=== PATIENT | male | born 1955 | race Caucasian/White ===

== ENCOUNTER 2016-04-23 09:57 | Outpatient (CLI) | payer MEDICARE, OTHER ==
[2015-10-14 17:18] VITALS: BP 135/84
[2016-04-23 10:15] LABS: BASOPHILS % 0.3 (0.0-1.5); EOSINOPHILS % 4.7 % (0.0-6.8); LYMPHOCYTES # 0.5 # k/uL (0.6-4.0); MEAN CORPUSCULAR HEMOGLOBIN 28.8 pg (28.0-34.0); MONOCYTES # 0.2 # k/uL (0.0-0.9); MONOCYTES % 6.9 % (0.0-11.0); NEUTROPHILS # 2.2 # k/uL (1.4-7.7)
[2016-04-23 10:37] LABS: eGFR (African) > 60; eGFR (Non-African) > 60
== END 2016-04-23 10:00 ==
LOC: LAB 09:57
PROVIDERS: ATTEND Internal Medicine Gastroenterology
DX: Z51.81 Encounter for therapeutic drug level monitoring (principal); Z79.899 Other long term (current) drug therapy; Z94.4 Liver transplant status
CPT/HCPCS: 36415; 80053; 80197; 80299; 85025

== ENCOUNTER 2016-05-09 08:09 | Outpatient (CLI) | payer MEDICARE, OTHER ==
[2015-10-14 17:18] VITALS: BP 135/84
[2016-05-09 08:37] LABS: BASOPHILS % 0.4 (0.0-1.5); EOSINOPHILS % 3.7 % (0.0-6.8); LYMPHOCYTES # 0.5 # k/uL (0.6-4.0); MEAN CORPUSCULAR HEMOGLOBIN 29.1 pg (28.0-34.0); MONOCYTES # 0.3 # k/uL (0.0-0.9); MONOCYTES % 7.6 % (0.0-11.0); NEUTROPHILS # 2.5 # k/uL (1.4-7.7)
[2016-05-09 09:15] LABS: eGFR (African) > 60; eGFR (Non-African) 60
== END 2016-05-09 08:10 ==
LOC: LAB 08:09
PROVIDERS: ATTEND Internal Medicine Gastroenterology
DX: Z51.81 Encounter for therapeutic drug level monitoring (principal); Z79.899 Other long term (current) drug therapy; Z94.4 Liver transplant status
CPT/HCPCS: 36415; 80053; 80197; 80299; 85025

== ENCOUNTER 2016-05-30 11:40 | Outpatient (CLI) | payer MEDICARE, OTHER ==
[2015-10-14 17:18] VITALS: BP 135/84
[2016-05-30 12:03] LABS: BASOPHILS % 0.2 (0.0-1.5); EOSINOPHILS % 2.8 % (0.0-6.8); LYMPHOCYTES # 0.6 # k/uL (0.6-4.0); MEAN CORPUSCULAR HEMOGLOBIN 29.3 pg (28.0-34.0); MONOCYTES # 0.3 # k/uL (0.0-0.9); MONOCYTES % 6.8 % (0.0-11.0); NEUTROPHILS # 3.1 # k/uL (1.4-7.7)
[2016-05-30 12:29] LABS: eGFR (African) > 60; eGFR (Non-African) > 60
== END 2016-05-30 11:42 ==
LOC: LAB 11:40
PROVIDERS: ATTEND Internal Medicine Gastroenterology
DX: Z79.899 Other long term (current) drug therapy (principal); Z94.4 Liver transplant status
CPT/HCPCS: 36415; 80053; 80197; 80299; 85025

== ENCOUNTER 2016-06-18 11:19 | Outpatient (CLI) | payer MEDICARE, OTHER ==
[2015-10-14 17:18] VITALS: BP 135/84
[2016-06-18 11:38] LABS: BASOPHILS % 0.4 (0.0-1.5); EOSINOPHILS % 2.2 % (0.0-6.8); LYMPHOCYTES # 0.6 # k/uL (0.6-4.0); MEAN CORPUSCULAR HEMOGLOBIN 28.8 pg (28.0-34.0); MONOCYTES # 0.2 # k/uL (0.0-0.9); MONOCYTES % 5.4 % (0.0-11.0); NEUTROPHILS # 2.4 # k/uL (1.4-7.7)
[2016-06-18 12:10] LABS: eGFR (African) > 60; eGFR (Non-African) > 60
== END 2016-06-18 11:20 ==
LOC: LAB 11:19
PROVIDERS: ATTEND Internal Medicine Gastroenterology
DX: Z79.899 Other long term (current) drug therapy (principal); Z94.4 Liver transplant status
CPT/HCPCS: 36415; 80053; 80197; 80299; 85025; 87522

== ENCOUNTER 2016-08-21 08:22 | Outpatient (CLI) | payer MEDICARE, OTHER ==
[2015-10-14 17:18] VITALS: BP 135/84
[2016-08-21 08:56] LABS: BASOPHILS % 0.6 (0.0-1.5); EOSINOPHILS % 3.9 % (0.0-6.8); MEAN CORPUSCULAR HEMOGLOBIN 28.5 pg (28.0-34.0); MEAN CORPUSCULAR VOLUME 88.3 fl (80.0-100.0); MONOCYTES % 6.4 % (0.0-11.0); NEUTROPHILS # 2.4 # k/uL (1.4-7.7)
[2016-08-21 09:13] LABS: eGFR (African) > 60; eGFR (Non-African) > 60
== END 2016-08-21 08:23 ==
LOC: LAB 08:22
PROVIDERS: ATTEND Internal Medicine Gastroenterology
DX: Z51.81 Encounter for therapeutic drug level monitoring (principal); Z79.899 Other long term (current) drug therapy; Z94.4 Liver transplant status
CPT/HCPCS: 36415; 80053; 80197; 80299; 85025

== ENCOUNTER 2016-10-16 08:39 | Outpatient (CLI) | payer MEDICARE, OTHER ==
[2015-10-14 17:18] VITALS: BP 135/84
[2016-10-16 09:18] LABS: BASOPHILS % 0.5 (0.0-1.5); EOSINOPHILS % 3.4 % (0.0-6.8); MEAN CORPUSCULAR HEMOGLOBIN 29.1 pg (28.0-34.0); MEAN CORPUSCULAR VOLUME 86.8 fl (80.0-100.0); MONOCYTES % 7.9 % (0.0-11.0); NEUTROPHILS # 2.4 # k/uL (1.4-7.7)
[2016-10-16 09:28] LABS: eGFR (African) > 60; eGFR (Non-African) > 60
[2016-10-16 23:01] LABS: PROTEIN mg/dL 57 mg/dL
== END 2016-10-16 08:40 ==
LOC: LAB 08:39
PROVIDERS: ATTEND Internal Medicine Gastroenterology
DX: I11.9 Hypertensive heart disease without heart failure (principal)
CPT/HCPCS: 36415; 80053; 80061; 80197; 80299; 82570; 84156; 85025; 87522

== ENCOUNTER → 2016-10-24 | Outpatient (CLI) | payer MEDICARE, OTHER ==
[2015-10-14 17:18] VITALS: BP 135/84
[2016-10-24 11:24] LABS: BASOPHILS % 0.5 (0.0-1.5); EOSINOPHILS % 1.4 % (0.0-6.8); MEAN CORPUSCULAR HEMOGLOBIN 29.6 pg (28.0-34.0); MEAN CORPUSCULAR VOLUME 85.8 fl (80.0-100.0); MONOCYTES % 5.6 % (0.0-11.0); NEUTROPHILS # 3.6 # k/uL (1.4-7.7)
[2016-10-25 00:41] LABS: TOTAL PROTEIN 6.7 g/dL (6.0-8.5)
== END ==
LOC: LAB 10:56
PROVIDERS: ATTEND Internal Medicine Gastroenterology
DX: Z79.4 Long term (current) use of insulin (principal); Z79.899 Other long term (current) drug therapy
CPT/HCPCS: 36415; 80053; 85025; 87497

== ENCOUNTER 2017-01-06 10:29 | Outpatient (CLI) | payer MEDICARE, OTHER ==
[2015-10-14 17:18] VITALS: BP 135/84
[2017-01-06 11:02] LABS: BASOPHILS % 0.7 (0.0-1.5); EOSINOPHILS % 4.6 % (0.0-6.8); MEAN CORPUSCULAR HEMOGLOBIN 29.1 pg (28.0-34.0); MEAN CORPUSCULAR VOLUME 84.9 fl (80.0-100.0); MONOCYTES % 5.8 % (0.0-11.0); NEUTROPHILS # 3.1 # k/uL (1.4-7.7)
[2017-01-06 11:24] LABS: eGFR (African) > 60; eGFR (Non-African) > 60
== END 2017-01-06 10:30 ==
LOC: LAB 10:29
PROVIDERS: ATTEND Internal Medicine Gastroenterology
DX: Z94.4 Liver transplant status (principal); Z79.899 Other long term (current) drug therapy
CPT/HCPCS: 36415; 80053; 80197; 80299; 82977; 85025

== ENCOUNTER 2017-03-17 07:49 | Outpatient (CLI) | payer MEDICARE, OTHER ==
[2015-10-14 17:18] VITALS: BP 135/84
[2017-03-17 08:28] LABS: MEAN CORPUSCULAR HEMOGLOBIN 29.2 pg (28.0-34.0); MEAN CORPUSCULAR VOLUME 88.5 fl (80.0-100.0)
[2017-03-17 08:37] LABS: eGFR (African) > 60; eGFR (Non-African) > 60
[2017-03-17 09:00] LABS: SEGMENTED NEUTROPHILS % 68 % (39-79)
[2017-03-17 09:01] LABS: BASOPHILS % 2 % (0-2); EOSINOPHILS % 3 % (0-7); MONOCYTES % 10 % (0-11)
== END 2017-03-17 07:50 ==
LOC: LAB 07:49
PROVIDERS: ATTEND Internal Medicine Gastroenterology
DX: Z94.4 Liver transplant status (principal); Z79.899 Other long term (current) drug therapy
CPT/HCPCS: 36415; 80053; 80197; 80299; 82977; 85025

== ENCOUNTER 2017-06-12 09:37 | Outpatient (CLI) | payer MEDICARE, OTHER ==
[2015-10-14 17:18] VITALS: BP 135/84
[2017-06-12 10:15] LABS: BASOPHILS % 0.7 (0.0-1.5); EOSINOPHILS % 2.9 % (0.0-6.8); MEAN CORPUSCULAR HEMOGLOBIN 29.1 pg (28.0-34.0); MEAN CORPUSCULAR VOLUME 88.3 fl (80.0-100.0); MONOCYTES % 6.5 % (0.0-11.0); NEUTROPHILS # 2.1 # k/uL (1.4-7.7)
[2017-06-12 10:53] LABS: eGFR (African) > 60; eGFR (Non-African) > 60
== END 2017-06-12 09:40 ==
LOC: LAB 09:37
PROVIDERS: ATTEND Internal Medicine Gastroenterology
DX: Z94.4 Liver transplant status (principal); Z79.899 Other long term (current) drug therapy
CPT/HCPCS: 36415; 80053; 80197; 80299; 82977; 85025

== ENCOUNTER 2017-08-17 10:18 | Outpatient (CLI) | payer MEDICARE, OTHER ==
[2015-10-14 17:18] VITALS: BP 135/84
[2017-08-17 10:31] LABS: BASOPHILS % 0.3 (0.0-1.5); EOSINOPHILS % 2.6 % (0.0-6.8); MEAN CORPUSCULAR HEMOGLOBIN 29.8 pg (28.0-34.0); MEAN CORPUSCULAR VOLUME 90.1 fl (80.0-100.0); MONOCYTES % 7.1 % (0.0-11.0); NEUTROPHILS # 2.6 # k/uL (1.4-7.7)
[2017-08-17 11:01] LABS: eGFR (African) > 60; eGFR (Non-African) > 60
== END 2017-08-17 10:22 ==
LOC: LAB 10:18
PROVIDERS: ATTEND Internal Medicine Gastroenterology
DX: Z94.4 Liver transplant status (principal); Z79.899 Other long term (current) drug therapy
CPT/HCPCS: 36415; 80053; 80197; 80299; 82977; 85025

== ENCOUNTER 2017-10-28 09:45 | Outpatient (CLI) | payer MEDICARE, OTHER ==
[2015-10-14 17:18] VITALS: BP 135/84
[2017-10-28 10:14] LABS: BASOPHILS % 0.6 (0.0-1.5); EOSINOPHILS % 3.4 % (0.0-6.8); MEAN CORPUSCULAR VOLUME 90.2 fl (80.0-100.0); MONOCYTES % 6.2 % (0.0-11.0); NEUTROPHILS # 2.5 # k/uL (1.4-7.7)
[2017-10-28 10:35] LABS: eGFR (African) > 60; eGFR (Non-African) > 60
== END 2017-10-28 09:46 ==
LOC: LAB 09:45
PROVIDERS: ATTEND Internal Medicine Gastroenterology
DX: Z94.4 Liver transplant status (principal); Z79.899 Other long term (current) drug therapy
CPT/HCPCS: 36415; 80053; 80197; 80299; 82977; 85025

== ENCOUNTER 2017-12-25 12:16 | Outpatient (CLI) | payer MEDICARE, OTHER ==
[2015-10-14 17:18] VITALS: BP 135/84
[2017-12-25 12:37] LABS: BASOPHILS % 0.9 (0.0-1.5); EOSINOPHILS % 2.9 % (0.0-6.8); MEAN CORPUSCULAR VOLUME 87.1 fl (80.0-100.0); MONOCYTES % 5.2 % (0.0-11.0); NEUTROPHILS # 3.1 # k/uL (1.4-7.7)
[2017-12-25 12:53] LABS: eGFR (Non-African) > 60
== END 2017-12-25 12:19 ==
LOC: LAB 12:16
PROVIDERS: ATTEND Internal Medicine Gastroenterology
DX: Z94.4 Liver transplant status (principal); Z79.899 Other long term (current) drug therapy
CPT/HCPCS: 36415; 80053; 80197; 80299; 82977; 85025

== ENCOUNTER 2018-05-17 13:44 | Outpatient (CLI) | payer MEDICARE, OTHER ==
[2015-10-14 17:18] VITALS: BP 135/84
[2018-05-17 14:03] LABS: BASOPHILS % 0.3 (0.0-1.5); EOSINOPHILS % 2.6 % (0.0-6.8); MEAN CORPUSCULAR HEMOGLOBIN 29.7 pg (28.0-34.0); MONOCYTES % 6.9 % (0.0-11.0); NEUTROPHILS # 3.5 # k/uL (1.4-7.7)
[2018-05-17 14:23] LABS: eGFR (Non-African) > 60
== END 2018-05-17 13:45 ==
LOC: LAB 13:44
PROVIDERS: ATTEND Internal Medicine Gastroenterology
DX: Z79.899 Other long term (current) drug therapy (principal)
CPT/HCPCS: 36415; 80053; 80197; 80299; 82977; 85025

== ENCOUNTER 2018-07-14 06:52 | Inpatient (IN) | payer MEDICARE, OTHER ==
--- NOTE | 2018-07-14 07:12 | ED Physician Documentation ---
Dyspnea - HISTORIAN Historian: patient - HPI Stated Complaint: shortness of breath Chief Complaint: Dyspnea Additional Information: Patient presents to ED with a 12 hour history of shortness of breath, chills, rigors and productive cough. Patient states his symptoms started last night and progressed throughout the evening. He is immunocompromised secondary to liver transplant, currently on Prograft and Cell Cept. Patient reports a history of hepatitis C, alcoholic liver cirrhosis (s/p transplant), heptocellular carcinoma and hypertension. Onset: hours (12) Duration: continues in ED Severity: mild Exacerbated By: coughing Associated Symptoms: chills, fever, productive cough. denies: chest pain Further Comments: no - ROS CONST: weakness EYES/ENT: denies: problems with vision, nasal drainage GI/: denies: vomiting, nausea NEURO/PSYCH: headache MS/SKIN/LYMPH: muscle aches - PAST HX Lung Disease: none PE Risk Factors: hypertension Other History: other (alcoholic liver cirrhosis s/p liver transplant) Allergies/Adverse Reactions: Allergies Allergy/AdvReac Type Severity Reaction Status Date / Time No Known Drug Allergies Allergy Verified 07/14/18 07:17 - SOCIAL HX Smoking History: non-smoker Alcohol Use: occasionally Drug Use: none - FAMILY HX Family History: none - VITAL SIGNS Vital Signs: Vital Signs Temp Pulse Resp BP Pulse Ox 135/84 10/14/15 17:13 - REVIEWED ASSESSMENTS Nursing Assessment Reviewed: Yes Vitals Reviewed: Yes Progress - Results/Orders Results/Orders: Influenza A - Positive UA - negative for infection or blood - Progress Progress: [address] Henriquez, agrees with admission. ED Results Lab/Radiology - Radiology Radiology Impressions: HISTORY: 63-year-old male with fever, chills, cough COMPARISON: None available TECHNIQUE: 2 views of the chest were performed. FINDINGS: There are mild bibasilar infiltrates. No pneumothorax or pulmonary edema. The heart is not enlarged. There is thoracic degenerative disc disease. The humeral heads are high-riding. IMPRESSION: 1. Mild bibasilar infiltrates may be due to any combination of pneumonia, scarring, and/or atelectasis. Old films would be helpful in making this distinction. 2. Thoracic spondylosis. 3. High-riding humeral heads, consistent with significant rotator cuff tendinopathy bilaterally. Electronically signed on Jul 14, 2018 7:54:03 AM CDT by: Alejo Bowers - Orders Orders: ED Orders Category Date Time Status Place IV Lock 1T Care 07/14/18 07:04 Ordered CHEST 2VIEW [RAD] Stat Exams 07/14/18 Ordered BLOOD CULTURE Stat Lab 07/14/18 Ordered CBC/PLATELET/DIFF Routine Lab 07/14/18 Ordered CMP Routine Lab 07/14/18 Ordered INFLUENZA A&B Stat Lab 07/14/18 Uncollected NT-proBNP Stat Lab 07/14/18 Ordered TROPONIN I (cTnI) Stat Lab 07/14/18 Ordered Dyspnea Physical Exam - EXAM General Appearance: no acute distress, alert EENT: [place] Neck: No: lymphadenopathy Respiratory: no resp. distress, other (faint bibasilar crackles) CVS: reg. rate & rhythm, no murmur Abdomen: non-tender, no distention. No: tenderness Skin: color nml, no rash Extremities: non-tender, no edema Neuro/Psych: oriented x3, motor nml, mood/affect nml Discharge Clincal Impression: Influenza A, Immunocompromised patient Pneumonia Qualifiers: Pneumonia type: due to other aerobic Gram-negative bacteria Laterality: bilateral Lung location: lower lobe of lung Qualified Code(s): J15.6 - Pneumonia due to other Gram-negative bacteria Condition: Fair Disposition: ADMITTED INPATIENT Decision to Admit: [id number] Date of Decison to Admit: 07/14/18 Decision Time: 09:00
[2018-07-14 07:25] LABS: BASOPHILS % 0.9 (0.0-1.5); EOSINOPHILS % 1.2 % (0.0-6.8); MEAN CORPUSCULAR HEMOGLOBIN 29.4 pg (28.0-34.0); MONOCYTES % 6.8 % (0.0-11.0); NEUTROPHILS # 14.9 # k/uL (1.4-7.7)
[2018-07-14] MEDS ORDERED: OSELTAMIVIR PHOSPHATE 75 MG CAPSULE PO ONE (07:40)
[2018-07-14 07:55] LABS: eGFR (Non-African) 58
[2018-07-14] MEDS ORDERED: LEVOFLOXACIN IN DEXTROSE 5 % 750 MG/150 ML PIGGYBACK IV ONE (07:59)
[2018-07-14] MEDS ORDERED: 0.9 % SODIUM CHLORIDE 1,000 ML IV ONE (08:00)
[2018-07-14] MEDS ORDERED: AZITHROMYCIN 500 MG in 0.9 % SODIUM CHLORIDE 250 ML IV ONE (08:15)
[2018-07-14] MEDS ORDERED: BISACODYL 5 MG TABLET.DR PO PRN (09:00)
[2018-07-14] MEDS ORDERED: HYDROcodone /APAP 5/325 1 EACH TABLET PO PRN (09:00)
[2018-07-14] MEDS ORDERED: ACETAMINOPHEN 325 MG TABLET PO PRN (09:00)
[2018-07-14] MEDS ORDERED: DOCUSATE SODIUM 100 MG CAPSULE PO PRN (09:00)
[2018-07-14] MEDS ORDERED: ONDANSETRON HCL/PF 4 MG/ 2ML VIAL IVP PRN (09:00)
[2018-07-14] MEDS ORDERED: MAG HYDROX/ALUMINUM HYD/SIMETH 30 ML UDC PO PRN (09:00)
[2018-07-14 09:19] VITALS: BMI 28.1
[2018-07-14] MEDS ORDERED: LEVOFLOXACIN IN DEXTROSE IV ONE (09:36)
[2018-07-14] MEDS: OSELTAMIVIR PHOSPHATE 75 MG CAPSULE PO SCH ×2 (09:50→20:19)
[2018-07-14] MEDS: HEPARIN SODIUM 5000 UNIT/1 ML SQ SCH ×2 (09:54→17:27)
[2018-07-14] MEDS: LEVOFLOXACIN IN DEXTROSE 5 % 750 MG/150 ML PIGGYBACK IV SCH (09:58)
[2018-07-14 10:46] LABS: OCCULT BLOOD,URINE TRACE-INTACT (NEGATIVE); PH URINE 5.5 (5.0 - 8.0); UROBILINOGEN URINE 0.2 Eu (0.2-1.0)
[2018-07-14] MEDS: IPRATROPIUM/ALBUTEROL SULFATE 3 ML AMPUL.NEB NEB SCH ×3 (11:06→20:50)
[2018-07-14] MEDS: AZITHROMYCIN 500 MG in 0.9 % SODIUM CHLORIDE 250 ML IV SCH (11:11)
--- NOTE | 2018-07-14 12:04 | History and Physical Report ---
History of Present Illnes - History of Present Illness Reason for Visit: Shortness of breath History of Present Illness: Patient began feeling bad yesterday with chills and severe rigors with SOB and productive cough. Grandson with Influenza last week and MIL (who lives with them) hospitalized with pneumonia last week. Patient felt worse today so came to the ER. He was found to have Influenza A and bilateral pneumonia with 17,000 WBC and mild CRI. Unfortunately patient is s/p liver transplant on antirejection meds, therefore is immunocompromised. He will be admitted to Acute Care for treatment. - Past Medical History Cardiac: HTN Heme/Onc: Cancer (hepatocellular - S/p liver transplant 12/02) Hepatobiliary: Cirrhosis, Hep A/B/C (Hep B) - Past Surgical History Past Surgical History: Hernia Repair, Other (liver transplant) - Past Family History Father Family History: CAD, (65) Mother Family History: (72) - Past Social History Smoke: 1 pack per day, No Occupation: disabled Alcohol: None Drugs: None Lives: With Family ( has renal cell cancer) - Health Maintenance Health Maintenance: denies: Influenza Vaccine, Pneumococcal Vaccine Influenza Vaccine: No Pneumonia Vaccine: No Resuscitation Status: Resusciation Status Resuscitation Status Full Code Review of Systems - Review of Systems Constitutional: Chills, Weakness. negative: Fever Eyes: negative: pain ENT: negative: Ear Pain Respiratory: Cough, Shortness of Breath, Sputum Cardiovascular: negative: Chest Pain Gastrointestinal: Diarrhea. negative: Nausea, Vomiting, Abdominal Pain Genitourinary: negative: Dysuria Musculoskeletal: negative: Neck Pain Skin: negative: Rash Neurological: Weakness - Medications/Allergies Allergies/Adverse Reactions: Allergies Allergy/AdvReac Type Severity Reaction Status Date / Time No Known Drug Allergies Allergy Verified 07/14/18 07:17 Current Inpatient Medications: Current Inpatient Medications Acetaminophen (Tylenol) 325 mg PO Q4H PRN PRN Reason: Fever >101 Hydrocodone Bitart/Acetaminophen (Maxwell 5/325) 1 each PO Q6H PRN PRN Reason: Severe Pain (Score 8-10) Al Hydrox/Mg Hydrox/Simethicone (Mylanta) 30 ml PO Q6 PRN PRN Reason: Heartburn Albuterol/Ipratropium (Duoneb) 3 ml NEB Q8 ADRIANNE Last Admin: 07/14/18 11:06 Dose: 3 ml Bisacodyl (Dulcolax) 10 mg PO DAILY PRN PRN Reason: Constipation Citalopram Hydrobromide (Celexa) 40 mg PO DAILY [facility] Docusate Sodium (Colace) 100 mg PO DAILY PRN PRN Reason: Constipation Heparin Sodium (Porcine) (Heparin) 5,000 unit SQ Q8 [facility] Last Admin: 07/14/18 09:54 Dose: 5,000 unit Sodium Chloride (Normal Saline) 1,000 mls @ 125 mls/hr IV Q8H [facility] Azithromycin 500 mg/ Sodium (Chloride) 250 mls @ 125 mls/hr IV Q24H [facility] Stop: 07/24/18 08:59 Last Admin: 07/14/18 11:11 Dose: 125 mls/hr Levofloxacin/Dextrose (Levaquin) 750 mg IV DAILY [facility] Last Admin: 07/14/18 09:58 Dose: Not Given Miscellaneous (Everolimus [Zortress]) 4 mg PO q12 hr [facility] Miscellaneous (Mycophenolate Sodium [Mycophenolic Acid]) 360 mg PO q12 hrs [facility] Miscellaneous (Tacrolimus [Tacrolimus]) 5 mg PO q12hr [facility] Miscellaneous (Valganciclovir Hcl [Valganciclovir Hcl]) 450 mg PO DAILY [facility] Ondansetron HCl (Zofran) 4 mg IVP Q6H PRN PRN Reason: nausea/vomiting Oseltamivir Phosphate (Tamiflu) 75 mg PO BID [facility] Last Admin: 07/14/18 09:50 Dose: Not Given Exam - Exam Vital Signs: Vital Signs (72 hours) 07/14/18 07/14/18 07/14/18 06:52 08:40 09:00 Temperature 99.3 F 100.3 F H 100.2 F H Pulse Rate [ 103 H 88 86 Left Pulse ox] Respiratory 17 20 20 Rate Blood Pressure 120/60 [Left Arm] Blood Pressure 102/70 105/64 105/64 [Right Arm] O2 Sat by Pulse 94 94 94 Oximetry 07/14/18 07/14/18 09:17 09:19 Temperature 100.2 F H 100.2 F H Pulse Rate [ 86 86 Left Pulse ox] Respiratory 20 20 Rate Blood Pressure 120/60 120/60 [Left Arm] Blood Pressure [Right Arm] O2 Sat by Pulse 94 94 Oximetry General: Alert, Oriented to Person, Oriented to Place, Oriented to Time, Cooperative, Mild distress HEENT: Atraumatic, PERRLA, EOMI, Mouth Mucous membr. moist/[place], Nose Mucous membr. moist/[place] Neck: Normal Range of Motion Lungs: Rhonchi Cardiovascular: Regular rate Abdomen: Normal bowel sounds, Soft, No tenderness Integumentary: Normal Extremities: No edema Neurological: Cranial nerves 3-12 NL, Reflexes 2+, Generalized Weakness Psych/Mental Status: Mental status NL, Mood NL, Appropriate Affect, Intact Judgment - Laboratory Results Laboratory Results: Laboratory Results 07/14/18 07/14/18 07/14/18 07:36 Unknown Unknown WBC 17.00 H RBC 4.80 Hgb 14.1 Hct 42.0 MCV 88.0 MCH 29.4 MCHC 33.5 RDW 14.1 Plt Count 152 Neut % (Auto) 87.2 H Lymph % (Auto) 3.9 L [place] % (Auto) 6.8 Eos % (Auto) 1.2 Baso % (Auto) 0.9 Neut # (Auto) 14.9 H Lymph # (Auto) 0.7 [place] # (Auto) 1.2 H Eos # (Auto) 0.2 Baso # (Auto) 0.2 Sodium 133 L Potassium 3.5 Chloride 103 Carbon Dioxide 20 L BUN 22 H Creatinine 1.33 H Estimated Creat Clear 72 Est GFR ( Amer) > 60 Est GFR (Non-Af Amer) 58 L Glucose 138 H Calcium 8.9 Total Bilirubin 0.5 AST 28 ALT 15 Alkaline Phosphatase 69 Troponin I NT-Pro-B Natriuret Pep Total Protein 6.8 Albumin 3.7 Urine Color Unk Urine Appearance Unk Urine pH 5.5 Ur Specific [place] 1.025 Urine Protein 3+ H Urine Ketones Trace H Urine Occult Blood Trace-intact H Urine Nitrite Negative Urine Bilirubin Negative Urine Urobilinogen 0.2 Ur Leukocyte Esterase Negative Urine Glucose Negative Influenza A (Rapid) Positive H Influenza B (Rapid) Negative 07/14/18 Unknown WBC RBC Hgb Hct MCV MCH MCHC RDW Plt Count Neut % (Auto) Lymph % (Auto) [place] % (Auto) Eos % (Auto) Baso % (Auto) Neut # (Auto) Lymph # (Auto) [place]lin # (Auto) Eos # (Auto) Baso # (Auto) Sodium Potassium Chloride Carbon Dioxide BUN Creatinine Estimated Creat Clear Est GFR ( Amer) Est GFR (Non-Af Amer) Glucose Calcium Total Bilirubin AST ALT Alkaline Phosphatase Troponin I < 0.03 L NT-Pro-B Natriuret Pep 643.7 H Total Protein Albumin Urine Color Urine Appearance Urine pH Ur Specific [place] Urine Protein Urine Ketones Urine Occult Blood Urine Nitrite Urine Bilirubin Urine Urobilinogen Ur Leukocyte Esterase Urine Glucose Influenza A (Rapid) Influenza B (Rapid) Assessment/Plan - Assessment/Plan (1) Hypertension Status: Chronic Current Visit: No Qualifiers: Hypertension type: essential hypertension Qualified Code(s): I10 - Essential (primary) hypertension Plan: Blood pressure soft on arrival to ER. Improved with IV hydration. Watch. (2) Immunocompromised patient Status: Chronic Current Visit: Yes Plan: S/P liver transplant. Continue antirejection meds. (3) Influenza A Status: Acute Current Visit: Yes Plan: STarted tamiflu in the ER. Continue. Will do precautions. (4) Pneumonia Status: Acute Current Visit: Yes Qualifiers: Pneumonia type: due to other aerobic Gram-negative bacteria Laterality: dawna ateral Lung location: lower lobe of lung Qualified Code(s): J15.6 - Pneumonia due to other Gram-negative bacteria Plan: Blood cultures pending. Started levaquin and zithromax. O2 as needed. Duonebs if needed. Heparin for DVT prevention. Recheck WBC in am. (5) Renal insufficiency, mild Status: Acute Current Visit: Yes Plan: Will continue IVF. Poor appetite. REcheck in morning. VTE Assessment - RISK FACTOR SCORE VTE RISK FACTOR SCORES: AGE OVER 60 YEARS, ACUTE INFECTION OTHER THEN SEPSIS - RISK VTE MODERATE RISK: SCORE OF 2 (RISK PROXIMAL DVT 2-4%) PROPHYAXIS NEEDED
[2018-07-14] MEDS: 0.9 % SODIUM CHLORIDE 1,000 ML IV SCH ×2 (20:12→20:13)
--- NOTE | 2018-07-14 20:26 | Diagnostic Imaging Report ---
PASTOR SEQUEIRA [facility] [address] [facility] [address] [place], [place]. [address] Report Submission Date: Jul 14, 2018 7:54:03 AM CDT Patient Study Name: ROSALINDA MCKEON Date: Jul 14, 2018 7:20:11 AM CDT Modality Type: DX Gender: M Description: CHEST 2VIEW : 57 Institution: [facility] Physician: PASTOR SEQUEIRA HISTORY: 63-year-old male with fever, chills, cough COMPARISON: None available TECHNIQUE: 2 views of the chest were performed. FINDINGS: There are mild bibasilar infiltrates. No pneumothorax or pulmonary edema. The heart is not enlarged. There is thoracic degenerative disc disease. The humeral heads are high-riding. IMPRESSION: 1. Mild bibasilar infiltrates may be due to any combination of pneumonia, scarring, and/or atelectasis. Old films would be helpful in making this distinction. 2. Thoracic spondylosis. 3. High-riding humeral heads, consistent with significant rotator cuff tendinopathy bilaterally. Electronically signed on Jul 14, 2018 7:54:03 AM CDT by: Alejo LEMUS
[2018-07-14] MEDS ORDERED: HEPARIN SODIUM 5000 UNIT/1 ML SQ SCH (21:00)
[2018-07-14] MEDS ORDERED: PATIENT OWN MED 1 EACH EACH PO SCH ×5 (21:00→21:02)
[2018-07-14] MEDS: CITALOPRAM HYDROBROMIDE 20 MG TABLET PO SCH (21:38)
[2018-07-14] MEDS: ZOLPIDEM TARTRATE 5 MG TABLET PO PRN (21:40)
[2018-07-15] MEDS: IPRATROPIUM/ALBUTEROL SULFATE 3 ML AMPUL.NEB NEB SCH ×3 (05:00→22:02)
--- NOTE | 2018-07-15 06:08 | Inpatient Progress Note ---
Subjective - Required Recertification Statement I anticipate X number of days because-include discharge plan: 1 - Review of Systems Subjective: Patient is feeling some better. Not as much body aches. Breathing improved. Objective - Exam Vitals and I&O: Vital Signs Temp 98.9 F 07/15/18 02:00 Pulse 78 07/15/18 02:00 Resp 16 07/15/18 02:00 BP 138/56 07/15/18 02:00 Pulse Ox 94 07/15/18 02:00 Intake & Output 07/14/18 07/14/18 07/15/18 11:59 23:59 11:59 Intake Total 0 360 Output Total 50 Balance 0 310 Weight 88.904 kg Intake: Oral 0 360 Output: Emesis 50 Other: Voiding Method Toilet Toilet Toilet # Voids 2 # Bowel Movements 1 General: Alert, Oriented to Person, Oriented to Place, Oriented to Time, Cooperative, No acute distress Lungs: Rhonchi Cardiovascular: Regular rate - Results Results: Laboratory Results WBC 17.00 K/ul (4.00-12.00) H 07/14/18 Unknown RBC 4.80 M/ul (3.90-5.20) 07/14/18 Unknown Hgb 14.1 g/dL (12.0-18.0) 07/14/18 Unknown Hct 42.0 % (37.0-53.0) 07/14/18 Unknown MCV 88.0 fl (80.0-100.0) 07/14/18 Unknown MCH 29.4 pg (28.0-34.0) 07/14/18 Unknown MCHC 33.5 g/dL (30.0-36.0) 07/14/18 Unknown RDW 14.1 % (11.3-14.3) 07/14/18 Unknown Plt Count 152 K/mm3 (130-400) 07/14/18 Unknown Neut % (Auto) 87.2 % (39.0-79.0) H 07/14/18 Unknown Lymph % (Auto) 3.9 % (16.0-50.0) L 07/14/18 Unknown [place] % (Auto) 6.8 % (0.0-11.0) 07/14/18 Unknown Eos % (Auto) 1.2 % (0.0-6.8) 07/14/18 Unknown Baso % (Auto) 0.9 (0.0-1.5) 07/14/18 Unknown Neut # (Auto) 14.9 # k/uL (1.4-7.7) H 07/14/18 Unknown Lymph # (Auto) 0.7 # k/uL (0.6-4.0) 07/14/18 Unknown [place] # (Auto) 1.2 # k/uL (0.0-0.9) H 07/14/18 Unknown Eos # (Auto) 0.2 # k/uL (0.0-0.6) 07/14/18 Unknown Baso # (Auto) 0.2 # k/uL (0.0-0.5) 07/14/18 Unknown Sodium 133 mmol/L (136-145) L 07/14/18 Unknown Potassium 3.5 mmol/L (3.5-5.1) 07/14/18 Unknown Chloride 103 mmol/L (98-107) 07/14/18 Unknown Carbon Dioxide 20 mmol/L (22-30) L 07/14/18 Unknown BUN 22 mg/dL (9-20) H 07/14/18 Unknown Creatinine 1.33 mg/dL (0.66-1.25) H 07/14/18 Unknown Estimated Creat Clear 72 07/14/18 Unknown Est GFR ( Amer) > 60 (60-) 07/14/18 Unknown Est GFR (Non-Af Amer) 58 (60-) L 07/14/18 Unknown Glucose 138 mg/dL (74-106) H 07/14/18 Unknown Calcium 8.9 mg/dL (8.4-10.2) 07/14/18 Unknown Total Bilirubin 0.5 mg/dL (0.2-1.3) 07/14/18 Unknown AST 28 U/L (15-46) 07/14/18 Unknown ALT 15 U/L (13-69) 07/14/18 Unknown Alkaline Phosphatase 69 U/L (38-126) 07/14/18 Unknown Troponin I < 0.03 ng/mL (0.03-0.06) L 07/14/18 Unknown NT-Pro-B Natriuret Pep 643.7 pg/mL (15.0-125.0) H 07/14/18 Unknown Total Protein 6.8 g/dL (6.3-8.2) 07/14/18 Unknown Albumin 3.7 g/dL (3.5-5.0) 07/14/18 Unknown Urine Color Unk (YELLOW) 07/14/18 07:36 Urine Appearance Unk (CLEAR) 07/14/18 07:36 Urine pH 5.5 (5.0 - 8.0) 07/14/18 07:36 Ur Specific [place] 1.025 (1.010-1.030) 07/14/18 07:36 Urine Protein 3+ mg/dL (NEGATIVE) H 07/14/18 07:36 Urine Ketones Trace mg/dL (NEGATIVE) H 07/14/18 07:36 Urine Occult Blood Trace-intact (NEGATIVE) H 07/14/18 07:36 Urine Nitrite Negative (NEGATIVE) 07/14/18 07:36 Urine Bilirubin Negative (NEGATIVE) 07/14/18 07:36 Urine Urobilinogen 0.2 Eu (0.2-1.0) 07/14/18 07:36 Ur Leukocyte Esterase Negative (NEGATIVE) 07/14/18 07:36 Urine Glucose Negative mg/dL (NEGATIVE) 07/14/18 07:36 Influenza A (Rapid) Positive (NEGATIVE) H 07/14/18 07:36 Influenza B (Rapid) Negative (NEGATIVE) 07/14/18 07:36 Assessment/Plan - Assessment/Plan (1) Hypertension Status: Chronic Current Visit: No Qualifiers: Hypertension type: essential hypertension Qualified Code(s): I10 - Essential (primary) hypertension (2) Immunocompromised patient Status: Chronic Current Visit: Yes (3) Influenza A Status: Acute Current Visit: Yes Plan: Continue tamiflu. (4) Pneumonia Status: Acute Current Visit: Yes Qualifiers: Pneumonia type: due to other aerobic Gram-negative bacteria Laterality: bilateral Lung location: lower lobe of lung Qualified Code(s): J15.6 - Pneumonia due to other Gram-negative bacteria Plan: Improving. Continue IV levaquin and zithromax. WBC better. REcheck in am. (5) Renal insufficiency, mild Status: Acute Current Visit: Yes Plan: Improved with IVF hydration. (6) Hypokalemia Status: Acute Current Visit: Yes Plan: REplace orally. REcheck in am. (7) Thrombocytopenia Status: Acute Current Visit: Yes Plan: STop heparin. Start SCD and recommend up in chair and in room today. Patient's has now been admitted with same diagnoses. 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 Mr. Mcarthur has to do EVERYTHING for her - lift her, bathe her, dress her, get her food.
[2018-07-15 07:18] LABS: eGFR (Non-African) > 60
[2018-07-15 07:42] LABS: EOSINOPHILS % 1.1 % (0.0-6.8); MEAN CORPUSCULAR HEMOGLOBIN 29.1 pg (28.0-34.0)
[2018-07-15 07:43] LABS: BASOPHILS % 0.5 (0.0-1.5); NEUTROPHILS # 11.6 # k/uL (1.4-7.7)
[2018-07-15] MEDS ORDERED: POTASSIUM CHLORIDE 20 MEQ TABLET.ER PO ONE (07:49)
[2018-07-15] MEDS: 0.9 % SODIUM CHLORIDE 1,000 ML IV SCH ×3 (08:10→20:00)
[2018-07-15] MEDS ORDERED: PATIENT OWN MED 1 EACH EACH PO SCH (09:00)
[2018-07-15] MEDS ORDERED: CITALOPRAM HYDROBROMIDE 20 MG TABLET PO SCH (09:00)
[2018-07-15] MEDS: OSELTAMIVIR PHOSPHATE 75 MG CAPSULE PO SCH ×2 (09:03→22:01)
[2018-07-15] MEDS: LEVOFLOXACIN IN DEXTROSE 5 % 750 MG/150 ML PIGGYBACK IV SCH (09:33)
[2018-07-15] MEDS: PATIENT OWN MED 1 EACH EACH PO SCH ×4 (09:34→22:01)
[2018-07-15] MEDS: LISINOPRIL 10 MG TABLET PO SCH (09:34)
[2018-07-15] MEDS: amLODIPine BESYLATE 5 MG TABLET PO SCH (09:34)
[2018-07-15] MEDS: AZITHROMYCIN 500 MG in 0.9 % SODIUM CHLORIDE 250 ML IV SCH (10:54)
[2018-07-15] MEDS ORDERED: SODIUM CHLORIDE 0.9% 1 NASAL SPRAY BTL IEN PRN (11:21)
[2018-07-15] MEDS: CITALOPRAM HYDROBROMIDE 20 MG TABLET PO SCH (22:01)
[2018-07-15] MEDS: ZOLPIDEM TARTRATE 5 MG TABLET PO PRN (22:04)
[2018-07-16] MEDS: 0.9 % SODIUM CHLORIDE 1,000 ML IV SCH (04:16)
[2018-07-16 06:28] LABS: MEAN CORPUSCULAR HEMOGLOBIN 29.5 pg (28.0-34.0)
[2018-07-16 06:36] LABS: eGFR (Non-African) > 60
[2018-07-16] MEDS: IPRATROPIUM/ALBUTEROL SULFATE 3 ML AMPUL.NEB NEB SCH ×2 (06:42→14:09)
--- NOTE | 2018-07-16 08:09 | Discharge Summary ---
Discharge Summary - Discharge [facility] Admission Date: 07/14/18 Discharge Date: 07/16/18 History of Present Illness: Patient began feeling bad yesterday with chills and severe rigors with SOB and productive cough. Grandson with Influenza last week and SHIRLENE (who lives with them) hospitalized with pneumonia last week. Patient felt worse today so came to the ER. He was found to have Influenza A and bilateral pneumonia with 17,000 WBC and mild CRI. Unfortunately patient is s/p liver transplant on antirejection meds, therefore is immunocompromised. He will be admitted to Acute Care for treatment. Condition at Discharge: Stable Home Medications: Ambulatory Orders Medication Instructions Recorded Levofloxacin [Levaquin] 500 mg PO DAILY #7 tablet 07/15/18 Oseltamivir Phosphate [Tamiflu] 75 mg PO BID #5 capsule 07/15/18 Consultations this Visit: None Procedures this Visit: None Allergies/Adverse Reactions: Allergies Allergy/AdvReac Type Severity Reaction Status Date / Time No Known Drug Allergies Allergy Verified 07/14/18 07:17 Patient Problems: Current Active Problems Problem Status Onset Hypokalemia Acute Influenza A Acute Pneumonia Acute Renal insufficiency, mild Acute Thrombocytopenia Acute Immunocompromised patient Chronic Discharge Summary: Patient was admitted with B pneumonia and influenza with a WBC of 17,000 due to his immunocompetent status. He responded well to tamiflu and levaquin/zithromax. At this time blood cultures are NGTD. His creatinine improved with IV hydration. Patient much improved. WBC normal. Good appetite. Lungs clear. Will discharge home. Hospital Course: Discharge Dx: Pneumonia. Influenza. HTN. H/o liver transplant s/p Hep C carcinoma. Disposition - home
[2018-07-16] MEDS ORDERED: PNEUMOCOCCAL 23-VAL IM ONE (09:00)
[2018-07-16] MEDS: LEVOFLOXACIN IN DEXTROSE 5 % 750 MG/150 ML PIGGYBACK IV SCH (09:48)
[2018-07-16] MEDS: amLODIPine BESYLATE 5 MG TABLET PO SCH (09:49)
[2018-07-16] MEDS: PATIENT OWN MED 1 EACH EACH PO SCH ×2 (09:49→09:50)
[2018-07-16] MEDS: LISINOPRIL 10 MG TABLET PO SCH (09:50)
[2018-07-16] MEDS: OSELTAMIVIR PHOSPHATE 75 MG CAPSULE PO SCH (09:50)
[2018-07-16] MEDS: AZITHROMYCIN 500 MG in 0.9 % SODIUM CHLORIDE 250 ML IV SCH (11:00)
[2018-07-16 14:13] VITALS: BP 120/70
== END 2018-07-16 13:45 | disposition home or self-care (01) | DRG 194 ==
LOC: ED 06:52 → SOUTH 08:25
PROVIDERS: ADMIT Family Medicine; ATTEND Family Medicine
DX: J18.1 Lobar pneumonia, unspecified organism (principal); D84.9 Immunodeficiency, unspecified; J10.1 Influenza due to other identified influenza virus with other respiratory manifestations; E87.6 Hypokalemia; D69.6 Thrombocytopenia, unspecified; N28.9 Disorder of kidney and ureter, unspecified; I10 Essential (primary) hypertension; Z92.25 Personal history of immunosuppression therapy; Z94.4 Liver transplant status; Z23 Encounter for immunization
CPT/HCPCS: 71046; 80048; 80053; 81002; 83880; 84484; 85025; 85027; 87040; 87400; 90732; 93005; A9270; J0456; J1644; J7030; J7050; 90471; 96374; 99222; 99232; 99238; 99284; 99285; J1956; S1016

== ENCOUNTER 2018-12-30 09:47 | Outpatient (CLI) | payer MEDICARE, OTHER ==
[2018-12-30 10:18] LABS: BASOPHILS % 0.3 % (0.0-1.5); NEUTROPHILS # 2.6 # k/uL (1.4-7.7)
[2018-12-30 10:36] LABS: eGFR (Non-African) > 60
== END 2018-12-30 09:50 ==
LOC: LAB 09:47
PROVIDERS: ATTEND Internal Medicine Gastroenterology
DX: Z51.81 Encounter for therapeutic drug level monitoring (principal); Z79.899 Other long term (current) drug therapy; Z94.4 Liver transplant status
CPT/HCPCS: 36415; 80053; 80197; 80299; 82977; 85025

== ENCOUNTER 2019-05-03 10:21 | Outpatient (CLI) | payer MEDICARE, OTHER | END 2019-05-03 10:26 | LOC: LAB 10:21 | PROVIDERS: ATTEND Internal Medicine Gastroenterology | DX: Z94.4 Liver transplant status (principal); Z79.899 Other long term (current) drug therapy | CPT/HCPCS: 36415; 80053; 80197; 80299; 82977; 85025 ==